=== PATIENT | female | born 1965 | race Caucasian/White ===

== ENCOUNTER 2016-08-16 20:35 | Inpatient (IN) | payer SELFPAY ==
[2016-08-16] MEDS ORDERED: CEFTRIAXONE 1 GM/D5W RTU 50 ML IV ONE (20:50)
[2016-08-16] MEDS ORDERED: METHYLPREDNISOLONE INJ 125 MG/2 ML SDV IV ONE (20:50)
[2016-08-16] MEDS ORDERED: ALBUTEROL SULFATE 0.083% NEB 2.5 MG/3 ML AMPUL NEB ONE (20:50)
[2016-08-16] MEDS ORDERED: NORMAL SALINE 1000 ML 1,000 ML IV ONE (20:51)
[2016-08-16] MEDS ORDERED: AZITHROMYCIN 250 MG TABLET PO ONE (20:51)
--- NOTE | 2016-08-16 20:54 | ER Document Report ---
ED General - General Chief Complaint: Respiratory Distress Stated Complaint: RESPIRATORY DISTRESS Time Seen by Provider: 08/16/16 20:41 Notes: Patient is a 50-year-old female without past medical history active daily tobacco user who presents with 4 days of progressively worsening cough, shortness of breath, fever up to 105F, and nasal congestion. She has been trying [id number] cough medicine without any improvement of her symptoms. Nothing has been noted to worsen her symptoms. Denies any history of similar symptoms in the past. She has not seen a primary care doctor regarding today's concerns. She has not had any vomiting, diarrhea, syncope, headache or neck pain. Denies any prior diagnosis of asthma or COPD. TRAVEL OUTSIDE OF THE [place] IN LAST 30 DAYS: No - Related Data Allergies/Adverse Reactions: No Known Allergies Allergy (Unverified 09/03/15 09:20) Past Medical History - General Information source: Patient - Social History Smoking Status: Never Smoker Frequency of alcohol use: None Drug Abuse: None Lives with: Spouse/Significant other Family History: Reviewed & Not Pertinent - Past Medical History Cardiac Medical History: Reports: Hx Atrial Fibrillation - Immunizations Hx Diphtheria, Pertussis, Tetanus Vaccination: - will not answer Review of Systems - Review of Systems Notes: Constitutional: Positive for fever. HENT: Negative for sore throat. Eyes: Negative for visual changes. Cardiovascular: Negative for chest pain. Respiratory: Positive for shortness of breath. Gastrointestinal: Negative for abdominal pain, vomiting or diarrhea. Genitourinary: Negative for dysuria. Musculoskeletal: Negative for back pain. Skin: Negative for rash. Neurological: Negative for headaches, weakness or numbness. 10 point ROS negative except as marked above and in HPI. Physical Exam - Vital signs Vitals: Temp Pulse Resp BP Pulse Ox 98.9 F 114 H 30 H 117/67 96 08/16/16 20:37 08/16/16 20:37 08/16/16 20:37 08/16/16 20:37 08/16/16 20:37 Interpretation: Tachycardic, Tachypneic Notes: PHYSICAL EXAMINATION: GENERAL: Appearance and in moderate respiratory distress HEAD: Atraumatic, normocephalic. EYES: Pupils equal round and reactive to light, extraocular movements intact, sclera anicteric, conjunctiva are normal. ENT: nares patent, oropharynx clear without exudates. Moderately dry mucous membranes. NECK: Normal range of motion, supple without lymphadenopathy LUNGS: Diminished breath sounds at the bilateral bases. Moderate respiratory distress with tachypnea and diffuse expiratory wheezing. HEART: Regular tachycardia without murmurs ABDOMEN: Soft, nontender, normoactive bowel sounds. No guarding, no rebound. No masses appreciated. EXTREMITIES: Normal range of motion, no pitting or edema. No cyanosis. NEUROLOGICAL: No focal neurological deficits. Moves all extremities spontaneously and on command. PSYCH: Normal mood, normal affect. SKIN: Warm, Dry, normal turgor, no rashes or lesions noted. Course - Re-evaluation Re-evalutation: 08/16/16 20:52 Patient arrives in moderate to severe respiratory distress with initial respiratory rate of 34, intercostal retractions and diffuse expiratory wheezing in all lung delatorre. She has a persistent cough. On room air patient desaturates to 84% rapidly off oxygen. She only comes to 89% on 4 L by nasal cannula. As soon as I saw the patient I did call for respiratory therapy to come to the bedside immediately and place the patient on BiPAP with continuous in-line nebulizers with albuterol. IV access has been established and 2 g of magnesium will be administered over 20 minutes. She will receive Solu-Medrol 125 mg. She has been placed on a kitchen operator. Her clinical history of a fever with hypoxemia and associated respiratory distress is most consistent with likely underlying COPD and a pneumonia. She has been started on IV ceftriaxone and oral azithromycin. Patient is critically ill at this time and will require frequent reassessments. She will require hospitalization. 08/16/16 21:54 Patient appears clinically improved on BiPAP. Chest x-ray shows bilateral infiltrates consistent with a bilateral pneumonia. She has a prominent leukocytosis at 23.6. Mildly hyponatremic. Pending venous blood gas and lactate. Will continue to reassess. 08/16/16 22:50 Work of breathing continues to be improved. Vitals have normalized. I have discussed this case with the hospitalist will admit. - Vital Signs Vital signs: Temp Pulse Resp BP Pulse Ox 98.9 F 114 H 19 117/67 94 08/16/16 20:37 08/16/16 20:37 08/16/16 21:00 08/16/16 20:37 08/16/16 21:00 - Laboratory Result Diagrams: 08/16/16 20:55 06/07/17 20:55 Laboratory results interpreted by me: 08/16/16 08/16/16 08/16/16 20:55 20:55 20:55 WBC 23.9 H RBC 3.61 L Hgb 11.3 L Hct 33.8 L VBG pH Sodium 130.6 L Potassium 3.3 L Chloride 96 L Glucose 113 H Calcium 8.2 L Magnesium 1.3 L 08/16/16 21:35 WBC RBC Hgb Hct VBG pH 7.43 H Sodium Potassium Chloride Glucose Calcium Magnesium - Diagnostic Test Radiology reviewed: Image reviewed, Reports reviewed Radiology results interpreted by me: 08/16/16 22:51 Chest x-ray: Bilateral infiltrate. - EKG Interpretation by Me Additional EKG results interpreted by me: 08/16/16 22:51 Sinus tachycardia. Rate 106. No ST elevations or depressions. QTC is 441. Critical Care Note - Critical Care Note Total time excluding time spent on procedures (mins): 45 Comments: Critical care time spent obtaining history from patient or surrogate, discussions with consultants, development of treatment plan with patient or surrogate, evaluation of patient's response to treatment, examination of patient , ordering and performing treatments and interventions, ordering and review of laboratory studies, re-evaluation of patient's condition, ordering and review of radiographic studies and review of old charts Discharge - Discharge Clinical Impression: Respiratory distress Bilateral pneumonia Qualifiers: Pneumonia type: due to unspecified organism Lung location: lower lobe of lung Qualified Code(s): J18.9 - Pneumonia, unspecified organism Sepsis Qualifiers: Sepsis type: sepsis due to unspecified organism Qualified Code(s): A41.9 - Sepsis, unspecified organism Disposition: ADMITTED INPATIENT Admitting Provider: [facility] Admitted: [facility]
[2016-08-16 21:24] LABS: HEMATOCRIT 33.8 % (36.0-47.0); HEMOGLOBIN 11.3 g/dL (12.0-15.5); HGB HCT DIFFERENCE 0.1; MEAN CORPUSCULAR HEMOGLOBIN 31.3 pg (27.0-33.4); MEAN CORPUSCULAR HGB CONC 33.5 g/dL (32.0-36.0); MEAN CORPUSCULAR VOLUME 94 fl (80-97); RED BLOOD COUNT 3.61 10^6/uL (3.72-5.28); RED CELL DISTRIBUTION WIDTH 12.9 % (11.5-14.0); WHITE BLOOD COUNT 23.9 10^3/uL (4.0-10.5)
[2016-08-16] MEDS: MAGNESIUM SULFATE/D5W 100 ML IV SCH ×2 (21:27→21:51)
[2016-08-16 21:34] LABS: ANION GAP 12 (5-19); BLOOD UREA NITROGEN 8 mg/dL (7-20); CALCIUM 8.2 mg/dL (8.4-10.2); CARBON DIOXIDE 23 mmol/L (22-30); CHLORIDE 96 mmol/L (98-107); CREATININE RESULT 0.65 mg/dL (0.52-1.25); GLUCOSE 113 mg/dL (75-110); POTASSIUM 3.3 mmol/L (3.6-5.0); SODIUM 130.6 mmol/L (137-145)
--- NOTE | 2016-08-16 21:48 | RADIOLOGY REPORT (SQ) ---
EXAM DESCRIPTION: CHEST SINGLE VIEW COMPLETED DATE/TIME: 08/16/2016 9:07 pm REASON FOR STUDY: sob, fever COMPARISON: None. EXAM PARAMETERS: NUMBER OF VIEWS: One view. TECHNIQUE: Single frontal radiographic view of the chest acquired. RADIATION DOSE: NA LIMITATIONS: None. FINDINGS: LUNGS AND PLEURA: No pneumothorax. Bilateral patchy airspace disease, basilar predominanc e. No significant pleural effusion. MEDIASTINUM AND HILAR STRUCTURES: No masses. Contour normal. HEART AND VASCULAR STRUCTURES: Heart normal in size. Normal vasculature. BONES: No acute findings. HARDWARE: None in the chest. OTHER: No other significant finding. IMPRESSION: Bilateral patchy airspace disease, basilar predominance. No significant pleural effusi on. TECHNICAL DOCUMENTATION: JOB ID: [id number]
[2016-08-16 21:56] LABS: VENOUS BLOOD BASE EXCESS 2.4 mmol/L; VENOUS BLOOD HCO3 26.9 mmol/L (20-32); VENOUS BLOOD PCO2 41.3 mmHg (35-63); VENOUS BLOOD PH 7.43 (7.30-7.42)
[2016-08-16] MEDS ORDERED: FENTANYL CITRATE INJ/PF 100 MCG/2 ML AMPUL IV PRN (22:03)
[2016-08-16] MEDS ORDERED: IPRATROPIUM/ALBUTEROL 0.5-2.5 MG/3 ML AMPUL NEB PRN (22:53)
[2016-08-16] MEDS ORDERED: GUAIFENESIN SYRP 200 MG/10 ML UDC PO PRN (22:53)
[2016-08-16] MEDS: NORMAL SALINE 1000 ML 1,000 ML IV SCH (23:28)
[2016-08-16] MEDS ORDERED: FLUTICASONE NASAL SPRAY 50 MCG/SPRY 120 SPRAY/16 GM NASL ONE (23:30)
[2016-08-16 23:31] LABS: ADD ON TESTING BLD IN LAB ACKNOWLEDGE
[2016-08-16 23:45] LABS: MAGNESIUM 1.3 mg/dL (1.6-2.3)
[2016-08-17] MEDS ORDERED: MAGNESIUM SULFATE/D5W 1 GM/100 ML RTUPB IV SCH (01:00)
[2016-08-17] MEDS: POTASSI CL 20 MEQ/50 ML RIDER 20 MEQ/50 ML RTUPB IV SCH ×2 (01:50→04:51)
[2016-08-17] MEDS: IPRATROPIUM/ALBUTEROL 0.5-2.5 MG/3 ML AMPUL NEB SCH ×4 (02:12→20:30)
[2016-08-17] MEDS ORDERED: FLUTICASONE NASAL SPRAY 50 MCG/SPRY 120 SPRAY/16 GM ONE (03:01)
[2016-08-17] MEDS: NORMAL SALINE 1000 ML 1,000 ML IV SCH (04:25)
--- NOTE | 2016-08-17 04:38 | PDOC H&P ---
History of Present Illness Admission Date/PCP: 08/16/16 22:53 Patient complains of: Shortness of breath and fever History of Present Illness: QUYNH OLSEN is a 50 year old female a past medical history of depression, anxiety and tobacco dependence. Who had been in her usual state of health until approximately 1 week prior to presentation with complaints of shortness of breath fever and nonproductive cough she denies infectious contacts, sore throat but has had rhinorrhea. She has taken a dose of Augmentin without improvement prompting her to seek evaluation emergency room where she is found to have bilateral infiltrates on chest exam, tachycardia, hypotension, hypoxia, fever and leukocytosis. She started on empiric antibiotics and referred to the hospitalist for admission. Past Medical History Cardiac Medical History: Reports: Atrial Fibrillation Pulmonary Medical History: Reports: Chronic Obstructive Pulmonary Disease (COPD) Psychiatric Medical History: Reports: Depression, General Anxiety Disorder, Tobacco Dependency Social History Information Source: Patient Lives with: Spouse/Significant other Smoking Status: Current Every Day Smoker Cigarettes Packs Per Day: 1 Number of Years Smokin Frequency of Alcohol Use: Rare Hx Recreational Drug Use: No Drugs: None - Advance Directive Resuscitation Status: Full Code Family History Family History: COPD Parental Family History Reviewed: Yes Children Family History Reviewed: Yes Sibling(s) Family History Reviewed.: Yes Medication/Allergy Home Medications: Escitalopram Oxalate [Lexapro] 20 mg PO DAILY 09/03/15 Alprazolam [Xanax 0.5 mg Tablet] 0.5 mg PO Q4 PRN 08/17/16 Allergies/Adverse Reactions: No Known Allergies Allergy (Unverified 09/03/15 09:20) Review of Systems Constitutional: ABSENT: chills, fever(s), headache(s), weight gain, weight loss Eyes: ABSENT: visual disturbances Ears: ABSENT: hearing changes Cardiovascular: ABSENT: chest pain, dyspnea on exertion, edema, orthropnea, palpitations Respiratory: ABSENT: cough, hemoptysis Gastrointestinal: ABSENT: abdominal pain, constipation, diarrhea, hematemesis, hematochezia, nausea, vomiting Genitourinary: ABSENT: dysuria, hematuria Musculoskeletal: ABSENT: joint swelling Integumentary: ABSENT: rash, wounds Neurological: ABSENT: abnormal gait, abnormal speech, confusion, dizziness, focal weakness, syncope Psychiatric: ABSENT: anxiety, depression, homidical ideation, suicidal ideation Endocrine: ABSENT: cold intolerance, heat intolerance, polydipsia, polyuria Hematologic/Lymphatic: ABSENT: easy bleeding, easy bruising Physical Exam Vital Signs: Temp Pulse Resp BP Pulse Ox 98.4 F 99 18 113/52 L 100 08/17/16 02:34 08/17/16 02:34 08/17/16 02:34 08/17/16 02:34 08/17/16 02:34 Intake & Output 08/15/16 08/16/16 08/17/16 11:59 11:59 11:59 Weight 67.2 kg General appearance: PRESENT: cooperative, disheveled, severe distress, well- developed, well-nourished Head exam: PRESENT: atraumatic, normocephalic Eye exam: PRESENT: conjunctiva pink, EOMI, PERRLA. ABSENT: scleral icterus Ear exam: PRESENT: normal external ear exam Mouth exam: PRESENT: moist, tongue midline Neck exam: ABSENT: carotid bruit, JVD, lymphadenopathy, thyromegaly Respiratory exam: PRESENT: accessory muscle use, crackles, prolonged expiratory phas, retraction, rhonchi, symmetrical, tachypnea, wheezes Cardiovascular exam: PRESENT: RRR. ABSENT: diastolic murmur, rubs, systolic murmur Pulses: PRESENT: normal dorsalis pedis pul Vascular exam: PRESENT: normal capillary refill GI/Abdominal exam: PRESENT: normal bowel sounds, soft. ABSENT: distended, guarding, mass, organolmegaly, rebound, tenderness Rectal exam: PRESENT: deferred Extremities exam: PRESENT: full ROM. ABSENT: calf tenderness, clubbing, pedal edema Neurological exam: PRESENT: alert, awake, oriented to person, oriented to place , oriented to time, oriented to situation, CN II-XII grossly intact. ABSENT: motor sensory deficit Psychiatric exam: PRESENT: anxious, normal mood. ABSENT: homicidal ideation, suicidal ideation Skin exam: PRESENT: dry, intact, warm. ABSENT: cyanosis, rash Results Impressions: Chest X-Ray 08/16/16 20:49 IMPRESSION: Bilateral patchy airspace disease, basilar predominance. No significant pleural effusion. Assessment & Plan - Diagnosis (1) Bilateral pneumonia Qualifiers: Pneumonia type: due to unspecified organism Lung location: lower lobe of lung Qualified Code(s): J18.9 - Pneumonia, unspecified organism Is this a current diagnosis for this admission?: YesPlan: New acute problem, complicated by COPD and tobacco, empiric antibiotics and blood culture follow-up CBC (2) COPD exacerbation Is this a current diagnosis for this admission?: YesPlan: Flutter valve, incentive spirometry, Flonase, albuterol and Atrovent consider follow-up CT given tobacco history (3) Hyponatremia Is this a current diagnosis for this admission?: YesPlan: Likely secondary pneumonia reevaluation of chemistry (4) Hypokalemia Is this a current diagnosis for this admission?: YesPlan: Repletion of magnesium and potassium with reevaluation of chemistry (5) Hypomagnesemia Is this a current diagnosis for this admission?: YesPlan: Repletion and reevaluation as needed (6) Anemia Is this a current diagnosis for this admission?: YesPlan: No obvious source of blood loss, normocytic normochromic anemia workup ordered (7) Tobacco dependence Is this a current diagnosis for this admission?: YesPlan: Tobacco Dependence patient received tobacco cessation counseling and offered nicotine replacement options (8) Sepsis Qualifiers: Sepsis type: sepsis due to unspecified organism Qualified Code(s): A41.9 - Sepsis, unspecified organism - Time Time Spent: 30 to 50 Minutes - Inpatient Certification Medical Necessity: Need Close Monitoring Due to Risk of Patient Decompensation
[2016-08-17] MEDS ORDERED: MAGNESIUM SULFATE/D5W 1 GM/100 ML RTUPB IV ONE (05:45)
[2016-08-17 06:25] LABS: HEMATOCRIT 32.3 % (36.0-47.0); HEMOGLOBIN 10.9 g/dL (12.0-15.5); HGB HCT DIFFERENCE 0.4; MEAN CORPUSCULAR HEMOGLOBIN 31.9 pg (27.0-33.4); MEAN CORPUSCULAR HGB CONC 33.8 g/dL (32.0-36.0); MEAN CORPUSCULAR VOLUME 94 fl (80-97); RED BLOOD COUNT 3.43 10^6/uL (3.72-5.28); RED CELL DISTRIBUTION WIDTH 12.8 % (11.5-14.0)
[2016-08-17 06:34] LABS: ALANINE AMINOTRANSFERASE 25 U/L (9-52); ALKALINE PHOSPHATASE 89 U/L (38-126); ANION GAP 8 (5-19); ASPARTATE AMINO TRANSFERASE 51 U/L (14-36); BILIRUBIN,DIRECT 0.3 mg/dL (0.0-0.4); BILIRUBIN,TOTAL 0.5 mg/dL (0.2-1.3); BLOOD UREA NITROGEN 6 mg/dL (7-20); CALCIUM 8.5 mg/dL (8.4-10.2); CARBON DIOXIDE 26 mmol/L (22-30); CHLORIDE 106 mmol/L (98-107); CREATININE RESULT 0.48 mg/dL (0.52-1.25); GLUCOSE 207 mg/dL (75-110); POTASSIUM 3.7 mmol/L (3.6-5.0); SODIUM 140.2 mmol/L (137-145); TOTAL PROTEIN 5.8 g/dL (6.3-8.2)
[2016-08-17 06:57] LABS: BASOPHILS % (MANUAL) 0 % (0-2); EOSINOPHILS % (MANUAL) 0 % (0-6); LYMPHOCYTES % (MANUAL) 2 % (13-45); TOTAL CELLS COUNTED 100
[2016-08-17 06:58] LABS: OVALOCYTES SLIGHT; POIKILOCYTOSIS SLIGHT; POLYCHROMASIA SLIGHT; TOXIC GRANULATION 1+
[2016-08-17] MEDS: HEPARIN SOD (PORCINE) 5,000 UNIT/ML 1 ML SYRINGE SUBCUT SCH ×3 (07:01→22:08)
--- NOTE | 2016-08-17 07:15 | EKG REPORT ---
SEVERITY:- ABNORMAL ECG - SINUS TACHYCARDIA PROBABLE LEFT ATRIAL ABNORMALITY LEFT AXIS DEVIATION BORDERLINE T ABNORMALITIES, ANT-LAT LEADS : Confirmed by: Cheri Rosa MD 17-Aug-2016 07:14:41
[2016-08-17] MEDS: FLUTICASONE NASAL SPRAY 50 MCG/SPRY 120 SPRAY/16 GM NASL SCH ×2 (10:25→22:08)
[2016-08-17] MEDS: BUSPIRONE HCL 10 MG TABLET PO SCH (10:26)
[2016-08-17] MEDS: CEFTRIAXONE 1 GM/D5W RTU 50 ML IV SCH (10:26)
[2016-08-17] MEDS: AZITHROMYCIN 500 MG in DEXTROSE 5%-WATER 250 ML IV SCH (10:26)
[2016-08-17] MEDS: GUAIFENESIN 600 MG TABLET.SA PO SCH ×2 (10:27→22:08)
[2016-08-17] MEDS: DIAZEPAM 2 MG TABLET PO SCH ×2 (10:27→22:08)
[2016-08-17] MEDS: ESCITALOPRAM OXALATE 10 MG TABLET PO SCH (10:27)
--- NOTE | 2016-08-17 14:28 | PDOC PROGRESS REPORT ---
Subjective Progress Note for:: 08/17/16 Subjective:: Seen this morning at the bedside and she was feeling quite anxious at that time. She is currently on bilevel Pap. She states that she is usually an anxious type person and usually is on Xanax at home. She is not claustrophobic and does not feel it is a mass that is causing her difficulty. She feels that it is simply that she cannot catch her breath. She denies any cardiac type of pain however she does endorse abdominal pain whenever she coughs. I reviewed her current diagnoses and she expresses understanding. Physical Exam Vital Signs: Temp Pulse Resp BP Pulse Ox 98.9 F 86 22 H 117/58 L 94 08/17/16 11:34 08/17/16 13:54 08/17/16 13:54 08/17/16 11:34 08/17/16 13:54 Intake & Output 08/16/16 08/17/16 08/18/16 06:59 06:59 06:59 Intake Total 1800 354 Output Total 0 Balance 1800 354 Weight 67.3 kg Physical exam: General: This is a well-developed well-nourished appearing white female resting in bed appearing anxious on bilevel Pap Heart: Tachycardic at the bedside no murmurs rubs or gallops. Lungs: The patient has bilevel Pap in place she has equal rise and fall of the chest. She has diminished breath sounds bilaterally at the bases. Abdomen: Soft nontender nondistended with active bowel sounds. Extremities: No clubbing cyanosis or edema. 2+ peripheral pulses bilaterally. Neuro: Awake alert oriented cranial nerves II through XII are grossly intact. Psych: Patient is obviously quite anxious. Results Laboratory Results: 08/17/16 05:45 08/17/16 05:45 08/17/16 08/17/16 05:45 05:45 WBC 17.0 H RBC 3.43 L Hgb 10.9 L Hct 32.3 L MCV 94 MCH 31.9 MCHC 33.8 RDW 12.8 Plt Count 275 Seg Neutrophils % Not Reportable Lymphocytes % Not Reportable Monocytes % Not Reportable Eosinophils % Not Reportable Basophils % Not Reportable Absolute Neutrophils Not Reportable Absolute Lymphocytes Not Reportable Absolute Monocytes Not Reportable Absolute Eosinophils Not Reportable Absolute Basophils Not Reportable Sodium 140.2 Potassium 3.7 Chloride 106 Carbon Dioxide 26 Anion Gap 8 BUN 6 L Creatinine 0.48 L Est GFR ( Amer) > 60 Est GFR (Non-Af Amer) > 60 Glucose 207 H Calcium 8.5 Total Bilirubin 0.5 AST 51 H ALT 25 Alkaline Phosphatase 89 Total Protein 5.8 L Albumin 3.0 L Impressions: Chest X-Ray 08/16/16 20:49 IMPRESSION: Bilateral patchy airspace disease, basilar predominance. No significant pleural effusion. Assessment & Plan - Diagnosis (1) Acute hypoxemic respiratory failure Plan: The patient was quite hypoxemic earlier today. We try taken bilevel Pap off of her and she turned blue within moments. Bilevel Pap at this time. Continue to wean as appropriate. (2) Sepsis Qualifiers: Sepsis type: sepsis due to unspecified organism Qualified Code(s): A41.9 - Sepsis, unspecified organism Plan: Sepsis secondary to underlying bilateral pneumonia. The patient also had hypotension on admission. She is improved after fluid resuscitation. (3) Pneumonia Qualifiers: Pneumonia type: due to unspecified organism Laterality: bilateral Lung location: lower lobe of lung Qualified Code(s): J18.9 - Pneumonia, unspecified organism Plan: Patient has bilateral pneumonia. Community-acquired likely with gram-positive sore atypicals. Continue Rocephin and azithromycin for now. She seems to be tolerating this very well. (4) Anxiety Plan: Patient is usually on Xanax at home. We have discussed use of anxiolytics in the setting of her respiratory failure. She has been receiving Valium at 2 mg thus far and has been tolerating it well. She is due for another dose of valium. she can use 1 to take the edge off. Hopefully this will help her tolerate the mask better (5) Anemia Is this a current diagnosis for this admission?: YesPlan: Likely anemia of chronic disease. Patient's hemoglobin and hematocrit are stable. We will continue to monitor. (6) COPD exacerbation Is this a current diagnosis for this admission?: YesPlan: Management as per #1. Add on low-dose steroids as there has been some evidence to suggest that this could also help her pneumonia. (7) Hyponatremia Is this a current diagnosis for this admission?: YesPlan: Resolved after copious fluids. (8) Tobacco dependence Is this a current diagnosis for this admission?: YesPlan: Smoking cessation is advised. - Time Time Spent with patient: 25-34 minutes Anticipated discharge: Home Within: Other - Inpatient Certification Medical Necessity: Need Close Monitoring Due to Risk of Patient Decompensation, Need for Nebulizer Therapy and Monitoring of Response, Need for IV Antibiotics
[2016-08-17] MEDS ORDERED: METHYLPREDNISOLONE INJ 40 MG/1 ML SDV IV ONE (15:00)
[2016-08-17 16:08] LABS: ANION GAP 7 (5-19); BLOOD UREA NITROGEN 10 mg/dL (7-20); CALCIUM 8.7 mg/dL (8.4-10.2); CARBON DIOXIDE 27 mmol/L (22-30); CHLORIDE 106 mmol/L (98-107); CREATININE RESULT 0.51 mg/dL (0.52-1.25); GLUCOSE 150 mg/dL (75-110); POTASSIUM 3.7 mmol/L (3.6-5.0); SODIUM 140.4 mmol/L (137-145)
[2016-08-17 16:27] LABS: MAGNESIUM 2.5 mg/dL (1.6-2.3)
[2016-08-17] MEDS: METHYLPREDNISOLONE INJ 40 MG/1 ML SDV IV SCH (22:08)
[2016-08-18] MEDS: IPRATROPIUM/ALBUTEROL 0.5-2.5 MG/3 ML AMPUL NEB SCH ×4 (02:37→20:01)
[2016-08-18 05:50] LABS: HEMATOCRIT 32.1 % (36.0-47.0); HEMOGLOBIN 10.6 g/dL (12.0-15.5); HGB HCT DIFFERENCE -0.3; MEAN CORPUSCULAR HEMOGLOBIN 31.3 pg (27.0-33.4); MEAN CORPUSCULAR VOLUME 95 fl (80-97); RED BLOOD COUNT 3.39 10^6/uL (3.72-5.28); RED CELL DISTRIBUTION WIDTH 13.2 % (11.5-14.0); WHITE BLOOD COUNT 24.1 10^3/uL (4.0-10.5)
[2016-08-18 05:53] LABS: ALANINE AMINOTRANSFERASE 31 U/L (9-52); ALBUMIN 2.9 g/dL (3.5-5.0); ALKALINE PHOSPHATASE 89 U/L (38-126); ANION GAP 8 (5-19); ASPARTATE AMINO TRANSFERASE 32 U/L (14-36); BILIRUBIN,DIRECT 0.4 mg/dL (0.0-0.4); BILIRUBIN,TOTAL 0.4 mg/dL (0.2-1.3); BLOOD UREA NITROGEN 11 mg/dL (7-20); CALCIUM 9.1 mg/dL (8.4-10.2); CARBON DIOXIDE 27 mmol/L (22-30); CHLORIDE 106 mmol/L (98-107); CREATININE RESULT 0.45 mg/dL (0.52-1.25); GLUCOSE 169 mg/dL (75-110); POTASSIUM 3.9 mmol/L (3.6-5.0); SODIUM 140.8 mmol/L (137-145); TOTAL PROTEIN 5.6 g/dL (6.3-8.2)
[2016-08-18 06:15] LABS: BASOPHILS % (MANUAL) 0 % (0-2); EOSINOPHILS % (MANUAL) 0 % (0-6); LYMPHOCYTES % (MANUAL) 5 % (13-45); TOTAL CELLS COUNTED 100
[2016-08-18 06:17] LABS: RBC MORPHOLOGY COMMENT NORMO-CYTIC/CHROMIC; TOXIC GRANULATION 1+
[2016-08-18] MEDS: HEPARIN SOD (PORCINE) 5,000 UNIT/ML 1 ML SYRINGE SUBCUT SCH ×3 (06:37→21:14)
[2016-08-18] MEDS: DIAZEPAM 2 MG TABLET PO SCH ×4 (09:33→21:14)
[2016-08-18] MEDS: BUSPIRONE HCL 10 MG TABLET PO SCH (09:33)
[2016-08-18] MEDS: GUAIFENESIN 600 MG TABLET.SA PO SCH ×2 (09:33→21:14)
[2016-08-18] MEDS: ESCITALOPRAM OXALATE 10 MG TABLET PO SCH (09:33)
[2016-08-18] MEDS: CEFTRIAXONE 1 GM/D5W RTU 50 ML IV SCH (09:34)
[2016-08-18] MEDS: AZITHROMYCIN 500 MG in DEXTROSE 5%-WATER 250 ML IV SCH (09:34)
[2016-08-18] MEDS: METHYLPREDNISOLONE INJ 40 MG/1 ML SDV IV SCH ×2 (09:34→21:14)
[2016-08-18] MEDS: FLUTICASONE NASAL SPRAY 50 MCG/SPRY 120 SPRAY/16 GM NASL SCH ×2 (09:34→21:14)
[2016-08-18] MEDS ORDERED: PROMETHAZINE HCL 25 MG TABLET PO PRN (09:45)
--- NOTE | 2016-08-18 11:51 | PDOC PROGRESS REPORT ---
Subjective Progress Note for:: 08/18/16 Subjective:: Seen this morning at the bedside and she was feeling quite anxious at that time. She is currently off bilevel Pap. She states that Valium is helping take the edge off. She still has occasional abdominal pain with coughing. She is bringing up copious sputum now. No chest pain or worsening shortness of breath Physical Exam Vital Signs: Temp Pulse Resp BP Pulse Ox 98.7 F 75 22 H 134/61 H 94 08/18/16 07:50 08/18/16 08:41 08/18/16 08:41 08/18/16 07:50 08/18/16 08:41 Intake & Output 08/17/16 08/18/16 08/19/16 06:59 06:59 06:59 Intake Total 1800 1537 Output Total 0 Balance 1800 1537 Weight 67.3 kg 67.7 kg Physical exam: General: This is a well-developed well-nourished appearing white female resting in bed appearing more anxious than yesterday on 4 L by nasal cannula. Heart: Regular rate and rhythm. no murmurs rubs or gallops. Lungs: Diminished at the bases bilaterally with equal rise and fall of the chest Abdomen: Soft nontender nondistended with active bowel sounds. Extremities: No clubbing cyanosis or edema. 2+ peripheral pulses bilaterally. Neuro: Awake alert oriented cranial nerves II through XII are grossly intact. Psych: Patient is obviously quite anxious. Worse than she did yesterday in terms of her level of anxiety. She states however that the Valium is helping Results Laboratory Results: 08/18/16 05:08 08/18/16 05:08 08/17/16 08/18/16 08/18/16 15:05 05:08 05:08 WBC 24.1 H RBC 3.39 L Hgb 10.6 L Hct 32.1 L MCV 95 MCH 31.3 MCHC 33.0 RDW 13.2 Plt Count 311 Seg Neutrophils % Not Reportable Lymphocytes % Not Reportable Monocytes % Not Reportable Eosinophils % Not Reportable Basophils % Not Reportable Absolute Neutrophils Not Reportable Absolute Lymphocytes Not Reportable Absolute Monocytes Not Reportable Absolute Eosinophils Not Reportable Absolute Basophils Not Reportable Sodium 140.4 140.8 Potassium 3.7 3.9 Chloride 106 106 Carbon Dioxide 27 27 Anion Gap 7 8 BUN 10 11 Creatinine 0.51 L 0.45 L Est GFR ( Amer) > 60 > 60 Est GFR (Non-Af Amer) > 60 > 60 Glucose 150 H 169 H Calcium 8.7 9.1 Magnesium 2.5 H D Total Bilirubin 0.4 AST 32 ALT 31 Alkaline Phosphatase 89 Total Protein 5.6 L Albumin 2.9 L Impressions: Chest X-Ray 08/16/16 20:49 IMPRESSION: Bilateral patchy airspace disease, basilar predominance. No significant pleural effusion. Assessment & Plan - Diagnosis (1) Acute hypoxemic respiratory failure Plan: Is now on oxygen via nasal cannula. Continue to wean. Continue nebulizer treatments. Continue Solu-Medrol. (2) Sepsis Qualifiers: Sepsis type: sepsis due to unspecified organism Qualified Code(s): A41.9 - Sepsis, unspecified organism Plan: Sepsis secondary to underlying bilateral pneumonia. The patient also had hypotension on admission. She Has improved overall (3) Pneumonia Qualifiers: Pneumonia type: due to unspecified organism Laterality: bilateral Lung location: lower lobe of lung Qualified Code(s): J18.9 - Pneumonia, unspecified organism Plan: Patient has bilateral pneumonia. Community-acquired likely with gram-positive or atypicals. Continue Rocephin and azithromycin for now. She seems to be tolerating this very well. White count went down yesterday and up again overnight. However, I believe that the increase is likely due to the steroids that were added yesterday. Overall she does look better with the exception of her anxiety. (4) Anxiety Plan: Patient's anxiety appears to be worse today than it was yesterday. The patient is visibly anxious and at times shakes in bed. These are not rigors but more so nervous dictation and constant readjustment. SHe is currently on 2 mg of Valium twice a day and going to increase this to 3 times a day. (5) Anemia Is this a current diagnosis for this admission?: YesPlan: Likely anemia of chronic disease. Patient's hemoglobin and hematocrit are stable. We will continue to monitor. (6) COPD exacerbation Is this a current diagnosis for this admission?: YesPlan: Management as per #1. continue Solu-Medrol (7) Hyponatremia Is this a current diagnosis for this admission?: YesPlan: Resolved after copious fluids. (8) Tobacco dependence Is this a current diagnosis for this admission?: YesPlan: Smoking cessation is advised. - Time Time Spent with patient: 25-34 minutes - Inpatient Certification Medical Necessity: Need Close Monitoring Due to Risk of Patient Decompensation
[2016-08-18] MEDS: ACETAMINOPHEN 325 MG TABLET PO PRN ×2 (12:40→20:32)
[2016-08-19] MEDS: IPRATROPIUM/ALBUTEROL 0.5-2.5 MG/3 ML AMPUL NEB SCH ×4 (01:42→20:15)
[2016-08-19 05:44] LABS: ABSOLUTE LYMPHOCYTES (AUTO) 1.5 10^3/uL (0.5-4.7); ABSOLUTE MONOCYTES (AUTO) 0.6 10^3/uL (0.1-1.4); ABSOLUTE NEUT (AUTO) 15.6 10^3/uL (1.7-8.2); BASOPHILS % (AUTO) 0.2 % (0-2); EOSINOPHILS % (AUTO) 0.1 % (0-6); HEMOGLOBIN 10.5 g/dL (12.0-15.5); HGB HCT DIFFERENCE -0.5; LYMPHOCYTES % (AUTO) 8.4 % (13-45); MEAN CORPUSCULAR HEMOGLOBIN 31.1 pg (27.0-33.4); MEAN CORPUSCULAR HGB CONC 32.7 g/dL (32.0-36.0); MEAN CORPUSCULAR VOLUME 95 fl (80-97); MONOCYTES % (AUTO) 3.5 % (3-13); RED BLOOD COUNT 3.36 10^6/uL (3.72-5.28); RED CELL DISTRIBUTION WIDTH 12.7 % (11.5-14.0); SEGMENTED NEUTROPHILS % (AUTO) 87.8 % (42-78); WHITE BLOOD COUNT 17.8 10^3/uL (4.0-10.5)
[2016-08-19] MEDS: HEPARIN SOD (PORCINE) 5,000 UNIT/ML 1 ML SYRINGE SUBCUT SCH ×3 (06:04→21:13)
[2016-08-19] MEDS: DIAZEPAM 2 MG TABLET PO SCH ×3 (06:04→21:13)
[2016-08-19 06:05] LABS: ALANINE AMINOTRANSFERASE 47 U/L (9-52); ALBUMIN 2.9 g/dL (3.5-5.0); ALKALINE PHOSPHATASE 83 U/L (38-126); ANION GAP 11 (5-19); ASPARTATE AMINO TRANSFERASE 34 U/L (14-36); BILIRUBIN,DIRECT 0.3 mg/dL (0.0-0.4); BILIRUBIN,TOTAL 0.3 mg/dL (0.2-1.3); BLOOD UREA NITROGEN 10 mg/dL (7-20); CALCIUM 8.9 mg/dL (8.4-10.2); CARBON DIOXIDE 29 mmol/L (22-30); CHLORIDE 103 mmol/L (98-107); CREATININE RESULT 0.42 mg/dL (0.52-1.25); GLUCOSE 152 mg/dL (75-110); MAGNESIUM 1.8 mg/dL (1.6-2.3); POTASSIUM 3.8 mmol/L (3.6-5.0); SODIUM 142.8 mmol/L (137-145); TOTAL PROTEIN 5.6 g/dL (6.3-8.2)
[2016-08-19] MEDS: GUAIFENESIN 600 MG TABLET.SA PO SCH ×2 (09:53→21:13)
[2016-08-19] MEDS: AZITHROMYCIN 250 MG TABLET PO SCH (09:53)
[2016-08-19] MEDS: CEFTRIAXONE 1 GM/D5W RTU 50 ML IV SCH (09:53)
[2016-08-19] MEDS: BUSPIRONE HCL 10 MG TABLET PO SCH (09:53)
[2016-08-19] MEDS: METHYLPREDNISOLONE INJ 40 MG/1 ML SDV IV SCH ×2 (09:53→21:13)
[2016-08-19] MEDS: FLUTICASONE NASAL SPRAY 50 MCG/SPRY 120 SPRAY/16 GM NASL SCH ×2 (09:57→21:13)
[2016-08-19] MEDS: ESCITALOPRAM OXALATE 10 MG TABLET PO SCH (09:57)
[2016-08-19] MEDS ORDERED: DOCUSATE SODIUM 100 MG CAPSULE PO PRN (13:25)
--- NOTE | 2016-08-19 13:25 | PDOC PROGRESS REPORT ---
Subjective Progress Note for:: 08/19/16 Subjective:: Seen this morning at the bedside. Patient is sitting up in bed eating breakfast. She is not nearly as anxious as she was yesterday. She denies any cardiac type pain but still has pain with cough. She is far less short of breath and is currently off of bilevel Pap. She does tell me that she needed it through the night. Physical Exam Vital Signs: Temp Pulse Resp BP Pulse Ox 98.1 F 81 21 H 149/78 H 97 08/19/16 08:37 08/19/16 08:37 08/19/16 08:37 08/19/16 08:37 08/19/16 08:37 Intake & Output 08/18/16 08/19/16 08/20/16 06:59 06:59 06:59 Intake Total 1537 2554 Output Total 4900 Balance 1537 -2346 Weight 67.7 kg 67.9 kg Physical exam: General: This is a well-developed well-nourished appearing white female up in bed finishing breakfast appearing brighter. Heart: Regular rate and rhythm. no murmurs rubs or gallops. Lungs: Diminished at the bases bilaterally with equal rise and fall of the chest Abdomen: Soft nontender nondistended with active bowel sounds. Extremities: No clubbing cyanosis or edema. 2+ peripheral pulses bilaterally. Neuro: Awake alert oriented cranial nerves II through XII are grossly intact. Psych: is anxious today than she was yesterday. Results Laboratory Results: 08/19/16 05:18 08/19/16 05:18 08/19/16 08/19/16 05:18 05:18 WBC 17.8 H RBC 3.36 L Hgb 10.5 L Hct 32.0 L MCV 95 MCH 31.1 MCHC 32.7 RDW 12.7 Plt Count 325 Seg Neutrophils % 87.8 H Lymphocytes % 8.4 L Monocytes % 3.5 Eosinophils % 0.1 Basophils % 0.2 Absolute Neutrophils 15.6 H Absolute Lymphocytes 1.5 Absolute Monocytes 0.6 Absolute Eosinophils 0.0 Absolute Basophils 0.0 Sodium 142.8 Potassium 3.8 Chloride 103 Carbon Dioxide 29 Anion Gap 11 BUN 10 Creatinine 0.42 L Est GFR ( Amer) > 60 Est GFR (Non-Af Amer) > 60 Glucose 152 H Calcium 8.9 Magnesium 1.8 Total Bilirubin 0.3 AST 34 ALT 47 Alkaline Phosphatase 83 Total Protein 5.6 L Albumin 2.9 L 08/17/16 10:45 Sputum Gram Stain - Final 08/17/16 10:45 Sputum Sputum Culture - Final NORMAL LACI Impressions: Chest X-Ray 08/16/16 20:49 IMPRESSION: Bilateral patchy airspace disease, basilar predominance. No significant pleural effusion. Assessment & Plan - Diagnosis (1) Acute hypoxemic respiratory failure Plan: Is now on oxygen via nasal cannula. Continue to wean. Continue nebulizer treatments. Continue Solu-Medrol. (2) Sepsis Qualifiers: Sepsis type: sepsis due to unspecified organism Qualified Code(s): A41.9 - Sepsis, unspecified organism Plan: Sepsis secondary to underlying bilateral pneumonia. The patient also had hypotension on admission. She Has improved overall (3) Pneumonia Qualifiers: Pneumonia type: due to unspecified organism Laterality: bilateral Lung location: lower lobe of lung Qualified Code(s): J18.9 - Pneumonia, unspecified organism Plan: Patient has bilateral pneumonia. Community-acquired likely with gram-positive or atypicals. Continue Rocephin and azithromycin for now. She seems to be tolerating this very well. White blood cell count is trending down. Overall she does look better with the exception of her anxiety. (4) Anxiety Plan: Improved today. Continue Valium. (5) Anemia Is this a current diagnosis for this admission?: YesPlan: Likely anemia of chronic disease. Patient's hemoglobin and hematocrit are stable. We will continue to monitor. (6) COPD exacerbation Is this a current diagnosis for this admission?: YesPlan: Management as per #1. continue Solu-Medrol (7) Hyponatremia Is this a current diagnosis for this admission?: YesPlan: Resolved after copious fluids. (8) Tobacco dependence Is this a current diagnosis for this admission?: YesPlan: Smoking cessation is advised. - Time Time Spent with patient: 15-24 minutes - Inpatient Certification Medical Necessity: Need Close Monitoring Due to Risk of Patient Decompensation
[2016-08-20] MEDS: IPRATROPIUM/ALBUTEROL 0.5-2.5 MG/3 ML AMPUL NEB SCH ×4 (01:48→20:00)
[2016-08-20 06:01] LABS: HEMOGLOBIN 10.9 g/dL (12.0-15.5); HGB HCT DIFFERENCE -0.3; MEAN CORPUSCULAR HEMOGLOBIN 31.3 pg (27.0-33.4); MEAN CORPUSCULAR HGB CONC 32.9 g/dL (32.0-36.0); MEAN CORPUSCULAR VOLUME 95 fl (80-97); RED BLOOD COUNT 3.47 10^6/uL (3.72-5.28); RED CELL DISTRIBUTION WIDTH 12.8 % (11.5-14.0); WHITE BLOOD COUNT 13.1 10^3/uL (4.0-10.5)
[2016-08-20 06:13] LABS: ANION GAP 11 (5-19); BLOOD UREA NITROGEN 11 mg/dL (7-20); CALCIUM 8.7 mg/dL (8.4-10.2); CARBON DIOXIDE 30 mmol/L (22-30); CHLORIDE 100 mmol/L (98-107); CREATININE RESULT 0.47 mg/dL (0.52-1.25); GLUCOSE 124 mg/dL (75-110); MAGNESIUM 1.8 mg/dL (1.6-2.3); POTASSIUM 4.3 mmol/L (3.6-5.0); SODIUM 140.9 mmol/L (137-145)
[2016-08-20 06:32] LABS: BAND NEUTROPHILS % (MANUAL) 1 % (3-5); BASOPHILS % (MANUAL) 0 % (0-2); EOSINOPHILS % (MANUAL) 0 % (0-6); LYMPHOCYTES % (MANUAL) 17 % (13-45); TOTAL CELLS COUNTED 100
[2016-08-20 06:35] LABS: PLATELET CLUMPS PRESENT; POLYCHROMASIA SLIGHT; TOXIC GRANULATION 1+
[2016-08-20] MEDS: HEPARIN SOD (PORCINE) 5,000 UNIT/ML 1 ML SYRINGE SUBCUT SCH ×3 (06:51→21:32)
[2016-08-20] MEDS: DIAZEPAM 2 MG TABLET PO SCH ×3 (06:51→21:32)
[2016-08-20] MEDS: AZITHROMYCIN 250 MG TABLET PO SCH (09:20)
[2016-08-20] MEDS: CEFTRIAXONE 1 GM/D5W RTU 50 ML IV SCH (09:20)
[2016-08-20] MEDS: METHYLPREDNISOLONE INJ 40 MG/1 ML SDV IV SCH (09:20)
[2016-08-20] MEDS: FLUTICASONE NASAL SPRAY 50 MCG/SPRY 120 SPRAY/16 GM NASL SCH ×2 (09:21→21:33)
[2016-08-20] MEDS: BUSPIRONE HCL 10 MG TABLET PO SCH (09:21)
[2016-08-20] MEDS: ESCITALOPRAM OXALATE 10 MG TABLET PO SCH (09:21)
[2016-08-20] MEDS: GUAIFENESIN 600 MG TABLET.SA PO SCH ×2 (09:21→21:32)
--- NOTE | 2016-08-20 15:38 | PDOC PROGRESS REPORT ---
Subjective Progress Note for:: 08/20/16 Subjective:: Follow-up visit for bilateral pneumonia. The patient is doing well. She is eating breakfast. She is far less anxious today. She still has a cough that causes her chest wall and abdominal wall pain. Otherwise she has no complain; she did state that she needed bilevel Pap overnight but has been off it since this morning Physical Exam Vital Signs: Temp Pulse Resp BP Pulse Ox 98.0 F 89 22 H 148/85 H 99 08/20/16 03:52 08/20/16 07:00 08/20/16 03:52 08/20/16 03:52 08/20/16 03:52 Intake & Output 08/19/16 08/20/16 08/21/16 06:59 06:59 06:59 Intake Total 2554 2639 Output Total 4900 4050 Balance -2346 -1411 Weight 67.9 kg 66.7 kg Physical exam: General: This is a well-developed well-nourished appearing white female up in bed finishing breakfast appearing brighter. Heart: Regular rate and rhythm. no murmurs rubs or gallops. Lungs: Diminished at the bases bilaterally with equal rise and fall of the chest Abdomen: Soft nontender nondistended with active bowel sounds. Extremities: No clubbing cyanosis or edema. 2+ peripheral pulses bilaterally. Neuro: Awake alert oriented cranial nerves II through XII are grossly intact. Psych: is anxious today than she was yesterday. Results Laboratory Results: 08/20/16 05:09 08/20/16 05:09 08/20/16 08/20/16 05:09 05:09 WBC 13.1 H RBC 3.47 L Hgb 10.9 L Hct 33.0 L MCV 95 MCH 31.3 MCHC 32.9 RDW 12.8 Plt Count 374 Seg Neutrophils % Not Reportable Lymphocytes % Not Reportable Monocytes % Not Reportable Eosinophils % Not Reportable Basophils % Not Reportable Absolute Neutrophils Not Reportable Absolute Lymphocytes Not Reportable Absolute Monocytes Not Reportable Absolute Eosinophils Not Reportable Absolute Basophils Not Reportable Sodium 140.9 Potassium 4.3 Chloride 100 Carbon Dioxide 30 Anion Gap 11 BUN 11 Creatinine 0.47 L Est GFR ( Amer) > 60 Est GFR (Non-Af Amer) > 60 Glucose 124 H Calcium 8.7 Magnesium 1.8 08/17/16 10:45 Sputum Gram Stain - Final 08/17/16 10:45 Sputum Sputum Culture - Final NORMAL LACI Impressions: Chest X-Ray 08/16/16 20:49 IMPRESSION: Bilateral patchy airspace disease, basilar predominance. No significant pleural effusion. Assessment & Plan - Diagnosis (1) Acute hypoxemic respiratory failure Plan: Is now on oxygen via nasal cannula. Continue to wean. Continue nebulizer treatments. Reduce Solu-Medrol to daily. (2) Sepsis Qualifiers: Sepsis type: sepsis due to unspecified organism Qualified Code(s): A41.9 - Sepsis, unspecified organism Plan: Sepsis secondary to underlying bilateral pneumonia. The patient also had hypotension on admission. She Has improved overall (3) Pneumonia Qualifiers: Pneumonia type: due to unspecified organism Laterality: bilateral Lung location: lower lobe of lung Qualified Code(s): J18.9 - Pneumonia, unspecified organism Plan: Patient has bilateral pneumonia. Community-acquired likely with gram-positive or atypicals. Continue Rocephin and azithromycin for now. She seems to be tolerating this very well. White blood cell count is trending down. Overall she does look better with the exception of her anxiety. (4) Anxiety Plan: Improved today. Continue Valium. (5) Anemia Is this a current diagnosis for this admission?: YesPlan: Likely anemia of chronic disease. Patient's hemoglobin and hematocrit are stable. We will continue to monitor. (6) COPD exacerbation Is this a current diagnosis for this admission?: YesPlan: Management as per #1. continue Solu-Medrol (7) Hyponatremia Is this a current diagnosis for this admission?: YesPlan: Resolved after copious fluids. (8) Tobacco dependence Is this a current diagnosis for this admission?: YesPlan: Smoking cessation is advised. - Time Time Spent with patient: 25-34 minutes - Inpatient Certification Medical Necessity: Need Close Monitoring Due to Risk of Patient Decompensation, Need for IV Antibiotics
[2016-08-21] MEDS: IPRATROPIUM/ALBUTEROL 0.5-2.5 MG/3 ML AMPUL NEB SCH ×4 (02:19→20:24)
[2016-08-21 05:51] LABS: ABSOLUTE EOSINOPHILS # (AUTO) 0.1 10^3/uL (0.0-0.6); ABSOLUTE LYMPHOCYTES (AUTO) 5.6 10^3/uL (0.5-4.7); ABSOLUTE MONOCYTES (AUTO) 1.2 10^3/uL (0.1-1.4); ABSOLUTE NEUT (AUTO) 8.8 10^3/uL (1.7-8.2); BASOPHILS % (AUTO) 0.2 % (0-2); EOSINOPHILS % (AUTO) 0.7 % (0-6); HEMATOCRIT 34.9 % (36.0-47.0); HEMOGLOBIN 11.2 g/dL (12.0-15.5); HGB HCT DIFFERENCE -1.3; LYMPHOCYTES % (AUTO) 35.7 % (13-45); MEAN CORPUSCULAR HEMOGLOBIN 30.7 pg (27.0-33.4); MEAN CORPUSCULAR HGB CONC 32.2 g/dL (32.0-36.0); MEAN CORPUSCULAR VOLUME 95 fl (80-97); MONOCYTES % (AUTO) 7.4 % (3-13); RED BLOOD COUNT 3.66 10^6/uL (3.72-5.28); RED CELL DISTRIBUTION WIDTH 12.9 % (11.5-14.0); WHITE BLOOD COUNT 15.8 10^3/uL (4.0-10.5)
[2016-08-21 06:02] LABS: ANION GAP 10 (5-19); BLOOD UREA NITROGEN 15 mg/dL (7-20); CALCIUM 8.8 mg/dL (8.4-10.2); CARBON DIOXIDE 30 mmol/L (22-30); CHLORIDE 101 mmol/L (98-107); CREATININE RESULT 0.52 mg/dL (0.52-1.25); GLUCOSE 87 mg/dL (75-110); POTASSIUM 3.8 mmol/L (3.6-5.0); SODIUM 140.7 mmol/L (137-145)
[2016-08-21] MEDS: HEPARIN SOD (PORCINE) 5,000 UNIT/ML 1 ML SYRINGE SUBCUT SCH ×3 (06:37→22:36)
[2016-08-21] MEDS: DIAZEPAM 2 MG TABLET PO SCH ×3 (06:37→22:36)
[2016-08-21] MEDS: ESCITALOPRAM OXALATE 10 MG TABLET PO SCH (09:20)
[2016-08-21] MEDS: GUAIFENESIN 600 MG TABLET.SA PO SCH ×2 (09:20→22:36)
[2016-08-21] MEDS: BUSPIRONE HCL 10 MG TABLET PO SCH (09:20)
[2016-08-21] MEDS: AZITHROMYCIN 250 MG TABLET PO SCH (09:20)
[2016-08-21] MEDS: FLUTICASONE NASAL SPRAY 50 MCG/SPRY 120 SPRAY/16 GM NASL SCH ×2 (09:24→22:36)
[2016-08-21] MEDS ORDERED: METHYLPREDNISOLONE INJ 40 MG/1 ML SDV IV SCH (10:00)
[2016-08-21] MEDS: CEFTRIAXONE 1 GM/D5W RTU 50 ML IV SCH (12:50)
--- NOTE | 2016-08-21 19:24 | PDOC DISCHARGE SUMMARY ---
General - Admit/Disc Date/PCP Admission Date/Primary Care Provider: 08/16/16 22:53 Discharge Date: 08/22/16 - Discharge Diagnosis (1) Acute hypoxemic respiratory failure Summary: The patient came in quite hypoxemic. She was placed on bilevel Pap. She did well with this and was able to be weaned to nasal cannula and then weaned to room air. Resolved (2) Sepsis Summary: Very to underlying pneumonia. Sepsis is resolved. White count is back down. (3) Pneumonia Summary: Doing much better and is now on room air. She received IV Rocephin and Zithromax. She will be converted to Levaquin tomorrow. The patient also was given 3 days worth of steroids. This helped greatly. Need any steroids for home use. Prescribed Levaquin for another 10 days as an outpatient as well as an inhaler. She should follow-up with her primary care doctor. She will need to establish with the health department. (4) Anxiety Summary: Improved. I do not think she will need anything for home use. (5) Anemia Is this a current diagnosis for this admission?: YesSummary: Stable (6) COPD exacerbation Is this a current diagnosis for this admission?: YesSummary: Is much improved. The patient is on room air. She is done with steroids after 3 days. She will need to follow-up as an outpatient for PFTs. Smoking cessation is advised. (7) Hyponatremia Is this a current diagnosis for this admission?: YesSummary: Resolved with IV fluids. (8) Tobacco dependence Is this a current diagnosis for this admission?: YesSummary: Cessation is recommended. - Additional Information Resuscitation Status: Full Code Home Medications: Escitalopram Oxalate [Lexapro] 20 mg PO DAILY 09/03/15 Fluticasone Propionate [Flonase Nasal [place] 50 Mcg/[place] 16 gm] 2 spray NASL Q12 spray.pump 08/21/16 Guaifenesin [Mucinex Sr 600 mg Tablet.sa] 600 mg PO Q12 #20 tablet.sa 08/21/16 Ipratropium/Albuterol Sulfate [Combivent Inhaler] 14.7 gm IH QID #1 aer.w.adap 08/21/16 Levofloxacin [Levaquin 750 mg Tablet] 750 mg PO DAILY #10 tablet 08/21/16 History of Present Illness History of Present Illness: HPI as per admitting physician: History of Present Illness Admission Date/PCP: 08/16/16 22:53 Patient complains of: Shortness of breath and fever History of Present Illness: QUYNH OLSEN is a 50 year old female a past medical history of depression, anxiety and tobacco dependence. Who had been in her usual state of health until approximately 1 week prior to presentation with complaints of shortness of breath fever and nonproductive cough she denies infectious contacts, sore throat but has had rhinorrhea. She has taken a dose of Augmentin without improvement prompting her to seek evaluation emergency room where she is found to have bilateral infiltrates on chest exam, tachycardia, hypotension, hypoxia, fever and leukocytosis. She started on empiric antibiotics and referred to the hospitalist for admission. Physical Exam Vital Signs: Temp Pulse Resp BP Pulse Ox 98.2 F 85 16 107/44 L 95 08/21/16 14:54 08/21/16 14:54 08/21/16 14:54 08/21/16 14:54 08/21/16 14:54 Intake & Output 08/20/16 08/21/16 08/22/16 06:59 06:59 06:59 Intake Total 2639 1489 1075 Output Total 4050 4600 1200 Balance -1411 -3111 -125 Weight 66.7 kg 65.2 kg Physical exam: General: This is a well-developed well-nourished appearing white female up in bed finishing breakfast appearing brighter and happy. Heart: Regular rate and rhythm. no murmurs rubs or gallops. Lungs: Diminished at the bases bilaterally with equal rise and fall of the chest Abdomen: Soft nontender nondistended with active bowel sounds. Extremities: No clubbing cyanosis or edema. 2+ peripheral pulses bilaterally. Neuro: Awake alert oriented cranial nerves II through XII are grossly intact. Psych: Does not appear anxious. Results Laboratory Results: 08/21/16 05:18 08/21/16 05:18 08/21/16 08/21/16 05:18 05:18 WBC 15.8 H RBC 3.66 L Hgb 11.2 L Hct 34.9 L MCV 95 MCH 30.7 MCHC 32.2 RDW 12.9 Plt Count 433 Seg Neutrophils % 56.0 Lymphocytes % 35.7 Monocytes % 7.4 Eosinophils % 0.7 Basophils % 0.2 Absolute Neutrophils 8.8 H Absolute Lymphocytes 5.6 H Absolute Monocytes 1.2 Absolute Eosinophils 0.1 Absolute Basophils 0.0 Sodium 140.7 Potassium 3.8 Chloride 101 Carbon Dioxide 30 Anion Gap 10 BUN 15 Creatinine 0.52 Est GFR ( Amer) > 60 Est GFR (Non-Af Amer) > 60 Glucose 87 Calcium 8.8 Magnesium 2.0 Impressions: Chest X-Ray 08/16/16 20:49 IMPRESSION: Bilateral patchy airspace disease, basilar predominance. No significant pleural effusion. Qualifiers PATEINT BEING DISCHARGED WITH ANY OF THE FOLLOWING DIAGNOSIS?: No Plan Time Spent: Less than 30 Minutes
[2016-08-22] MEDS: IPRATROPIUM/ALBUTEROL 0.5-2.5 MG/3 ML AMPUL NEB SCH ×2 (02:19→08:37)
[2016-08-22] MEDS: DIAZEPAM 2 MG TABLET PO SCH (05:42)
[2016-08-22] MEDS: HEPARIN SOD (PORCINE) 5,000 UNIT/ML 1 ML SYRINGE SUBCUT SCH (05:42)
[2016-08-22 08:47] VITALS: BP 100/60
[2016-08-22] MEDS ORDERED: LEVOFLOXACIN 750 MG TABLET PO SCH (10:00)
--- NOTE | 2016-08-22 17:30 | Progress Note ---
Provider Note Provider Note: pt seen and examined, labs and imaging reviewed. she is alert, awake and ambulating in the room, course BSs bilat but no wheezes or rhonchi, cardio is regular without murmur, no edema about the BLEs. she is not requiring supplemental O2 and oxygenation is 94% on RA. she is stable for d/c home at this time, see d/c summary from yesterday. total 25 mins spent in evaluation of the patient and discussion with her and preparation of the necessary paperwork.
== END 2016-08-22 10:02 | disposition home or self-care (01) | DRG 871 ==
LOC: ER 20:35 → EH 22:53 → UNDOADMIN 22:58 → 3S 08-17 01:38
PROVIDERS: ADMIT Internal Medicine; ATTEND Internal Medicine
PROC: 5A09457 Assistance with Respiratory Ventilation, 24-96 Consecutive Hours, Continuous Positive Airway Pressure (ICD-10-PCS; principal; 2016-08-16)
PROC: 3E0F73Z Introduction of Anti-inflammatory into Respiratory Tract, Via Natural or Artificial Opening (ICD-10-PCS; 2016-08-16)
DX: A41.9 Sepsis, unspecified organism (principal); J18.9 Pneumonia, unspecified organism; J96.01 Acute respiratory failure with hypoxia; J44.1 Chronic obstructive pulmonary disease with (acute) exacerbation; E87.1 Hypo-osmolality and hyponatremia; R65.20 Severe sepsis without septic shock; D64.9 Anemia, unspecified; F32.9 Major depressive disorder, single episode, unspecified; I48.91 Unspecified atrial fibrillation; F41.1 Generalized anxiety disorder; E87.6 Hypokalemia; E83.42 Hypomagnesemia; I95.9 Hypotension, unspecified; F17.210 Nicotine dependence, cigarettes, uncomplicated; Z79.899 Other long term (current) drug therapy; Z83.6 Family history of other diseases of the respiratory system
CPT/HCPCS: 36415; 71010; 80048; 80053; 82803; 83605; 83735; 84484; 85025; 85027; 87040; 87070; 87205; 93005; 93010; 94640; 94660; 94667; 94668; 94799; 96365; 96367; 96368; 96375; 99291; J0456; J0696; J1644; J2920; J2930; J3010; J3475; J3480; J3490; J7030; J7060; J7620